=== PATIENT | female | born 1985 | race African-American/Black ===

== ENCOUNTER → 2016-06-13 | Outpatient (CLI) | payer OTHER ==
[~2016-06-13] MED LIST: AMOX400S2; CIPR500T19; COLA100C2; IBUP100S; IBUP800T; PERC5TAB8; Senna
== END ==
LOC: M OUTALCOH 08:58
PROVIDERS: ATTEND Psychiatry & Neurology Psychiatry
DX: Z13.9 Encounter for screening, unspecified (principal); F12.20 Cannabis dependence, uncomplicated; F11.20 Opioid dependence, uncomplicated

== ENCOUNTER → 2016-07-12 | Outpatient (RCR) | payer OTHER | LOC: M OUTALCOH 06-21 14:17 | PROVIDERS: ATTEND Psychiatry & Neurology Psychiatry | DX: F11.20 Opioid dependence, uncomplicated (principal); F12.20 Cannabis dependence, uncomplicated; Z72.0 Tobacco use ==

== ENCOUNTER → 2016-07-22 | Outpatient (REF) | payer OTHER | LOC: M SFHCPLAZ 15:50 | PROVIDERS: ATTEND Family Medicine | DX: Z11.3 Encounter for screening for infections with a predominantly sexual mode of transmission (principal) ==

== ENCOUNTER → 2016-07-28 | Outpatient (REF) | payer OTHER | LOC: M SFHCPLAZ 15:31 | PROVIDERS: ATTEND Family Medicine | DX: Z12.4 Encounter for screening for malignant neoplasm of cervix (principal); A59.09 Other urogenital trichomoniasis ==

== ENCOUNTER → 2016-08-12 | Outpatient (RCR) | payer OTHER | LOC: M OUTALCOH 07-15 10:10 | PROVIDERS: ATTEND Psychiatry & Neurology Psychiatry | DX: Z13.9 Encounter for screening, unspecified (principal); F11.20 Opioid dependence, uncomplicated; F12.20 Cannabis dependence, uncomplicated; Z72.0 Tobacco use ==

== ENCOUNTER 2016-09-07 13:00 | Outpatient (RCR) | payer OTHER | END 2016-09-11 | LOC: M OUTALCOH 13:00 | PROVIDERS: ATTEND Psychiatry & Neurology Psychiatry | DX: Z13.9 Encounter for screening, unspecified (principal); F11.20 Opioid dependence, uncomplicated; F12.20 Cannabis dependence, uncomplicated; Z72.0 Tobacco use ==

== ENCOUNTER 2016-10-06 15:00 | Outpatient (RCR) | payer OTHER | END 2016-10-12 | LOC: M OUTALCOH 15:00 | PROVIDERS: ATTEND Psychiatry & Neurology Psychiatry | DX: Z13.9 Encounter for screening, unspecified (principal); F11.20 Opioid dependence, uncomplicated; F12.20 Cannabis dependence, uncomplicated; Z72.0 Tobacco use ==

== ENCOUNTER 2016-11-07 15:00 | Outpatient (RCR) | payer OTHER | END 2016-11-11 | LOC: M OUTALCOH 15:00 | PROVIDERS: ATTEND Psychiatry & Neurology Psychiatry | DX: Z13.9 Encounter for screening, unspecified (principal); F11.20 Opioid dependence, uncomplicated; F12.20 Cannabis dependence, uncomplicated; Z72.0 Tobacco use ==

== ENCOUNTER 2016-11-28 16:00 | Outpatient (RCR) | payer OTHER | END 2016-12-12 | LOC: M OUTALCOH 16:00 | PROVIDERS: ATTEND Psychiatry & Neurology Psychiatry | DX: F11.20 Opioid dependence, uncomplicated (principal); F12.20 Cannabis dependence, uncomplicated; Z72.0 Tobacco use ==

== ENCOUNTER 2016-12-21 12:10 | Outpatient (RCR) | payer OTHER | END 2017-01-12 | LOC: M OUTALCOH 12:10 | PROVIDERS: ATTEND Psychiatry & Neurology Psychiatry | DX: Z13.9 Encounter for screening, unspecified (principal); F11.20 Opioid dependence, uncomplicated; F12.20 Cannabis dependence, uncomplicated; Z72.0 Tobacco use ==

== ENCOUNTER 2017-05-31 15:07 | Emergency (ER) | payer OTHER ==
[2017-05-31 17:13] LABS: CONTROL LINE UCG INT CTR LINE PRESENT; URINE PREG TEST NEGATIVE (NEGATIVE)
[2017-05-31 17:24] LABS: KETONE, URINE AUTO RFX NEGATIVE (NEGATIVE); LEUKOCYTE ESTERASE UR AUTO RFX NEGATIVE (NEGATIVE); MUCUS, URINE RFX SMALL (NEGATIVE); NITRITE, URINE AUTO RFX NEGATIVE (NEGATIVE); RBC, URINE AUTO RFX 1 /HPF (0-3); SQUAM EPITHELIAL CELL UR AURFX 3 /HPF (0-6); WBC, URINE AUTO RFX 0 /HPF (0-3)
[2017-05-31] MEDS: PERCOCET 5MG/325MG TAB PO (17:24)
[2017-05-31] MEDS: ONDANSETRON 4 MG TAB (S0181) PO (17:25)
== END 2017-05-31 18:14 | disposition home or self-care (01) ==
LOC: M ED 15:07
DX: S16.1XXA Strain of muscle, fascia and tendon at neck level, initial encounter (principal); S39.012A Strain of muscle, fascia and tendon of lower back, initial encounter; W00.0XXA Fall on same level due to ice and snow, initial encounter; Y92.89 Other specified places as the place of occurrence of the external cause; F41.9 Anxiety disorder, unspecified; Z88.0 Allergy status to penicillin
CPT/HCPCS: 72072

== ENCOUNTER → 2019-07-17 | Outpatient (REF) | payer OTHER ==
[~2019-07-17] MED LIST changes: +HYDR-3715 PO; +IBUP-1022 PO; +SERT50TA29 PO; +TRAZ-257 PO
[2019-07-17 13:43] LABS: CHLAMYDIA DNA AMPLIFICATION NEGATIVE (NEGATIVE); GC DNA AMPLIFICATION POSITIVE (NEGATIVE)
== END ==
LOC: M SFHCPLAZ 10:17 → M SFHCWAGY 10:17
PROVIDERS: ATTEND Family Medicine
DX: Z12.4 Encounter for screening for malignant neoplasm of cervix (principal); Z11.3 Encounter for screening for infections with a predominantly sexual mode of transmission

== ENCOUNTER → 2019-09-09 | Outpatient (REF) | payer OTHER | LOC: M SFHCWAGY 16:47 | PROVIDERS: ATTEND Nurse Practitioner Women's Health | DX: R87.810 Cervical high risk human papillomavirus (HPV) DNA test positive (principal) ==

== ENCOUNTER 2020-04-12 18:40 | Emergency (ER) | payer OTHER ==
[~2020-04-12] VITALS: Ht 160 cm; Wt 78.4 kg
[2020-04-12] MEDS ORDERED: ACET650T15 PO (18:51)
[2020-04-12] MEDS ORDERED: ZOLP5TAB PO (18:51)
[2020-04-12 19:32] LABS: BASO # 0.1 10^3/uL (0.0-0.2); BASO % 0.6 % (0.0-1.0); EOS # 0.1 10^3/uL (0.0-0.5); EOS % 0.5 % (0.0-3.0); HEMATOCRIT 38.6 % (36.0-47.0); HEMOGLOBIN 12.1 g/dl (12.0-15.5); LYMPH # 2.2 10^3/uL (1.5-5.0); LYMPH % 21.6 % (24.0-44.0); MEAN CORPUSCULAR HEMOGLOBIN 24.9 pg (27.0-33.0); MEAN CORPUSCULAR HGB CONC 31.3 g/dl (32.0-36.5); MEAN CORPUSCULAR VOLUME 79.6 fl (80.0-96.0); MONO # 0.5 10^3/uL (0.0-0.8); MONO % 4.9 % (0.0-5.0); NEUTROPHILS # 7.4 10^3/uL (1.5-8.5); NEUTROPHILS % 72.1 % (36.0-66.0); PLATELET COUNT, AUTOMATED 307 10^3/uL (150-450); RED BLOOD COUNT 4.85 10^6/uL (4.00-5.40); WHITE BLOOD COUNT 10.2 10^3/uL (4.0-10.0)
[2020-04-12 19:52] LABS: BLOOD UREA NITROGEN 5 MG/DL (7-18); C REACTIVE PROTEIN QUANTITATIV 6.94 MG/DL (0.00-0.30); CALCIUM LEVEL 8.6 MG/DL (8.5-10.1); CARBON DIOXIDE LEVEL 27 MEQ/L (21-32); CHLORIDE LEVEL 103 MEQ/L (98-107); CREATININE FOR GFR 0.68 MG/DL (0.55-1.30); GLOMERULAR FILTRATION RATE > 60.0 (>60); GLUCOSE, FASTING 105 MG/DL (70-100); POTASSIUM SERUM 3.3 MEQ/L (3.5-5.1); SODIUM LEVEL 135 MEQ/L (136-145)
[2020-04-12 19:55] LABS: ERYTHROCYTE SEDIMENTATION RATE 42 mm/hr (0-20)
[2020-04-12] MEDS ORDERED: KETOROLAC 30 MG/ML 1ML VIAL IV ONE (20:30)
[2020-04-12] MEDS ORDERED: CLINDAMYCIN 900 MG in IV 1 EA IV ONE (20:30)
[2020-04-12] MEDS ORDERED: CLEO300C2 PO (21:58)
[2020-04-12 22:22] VITALS: BP 168/90
== END 2020-04-12 22:24 | disposition home or self-care (01) ==
LOC: M ED 18:40
DX: L03.114 Cellulitis of left upper limb (principal); F17.200 Nicotine dependence, unspecified, uncomplicated; Z97.5 Presence of (intrauterine) contraceptive device; Z79.899 Other long term (current) drug therapy; Z88.0 Allergy status to penicillin
CPT/HCPCS: 36415; 80048; 85025; 85652; 86140; 87040; 96365; 96375; 99284; J1885

== ENCOUNTER 2020-04-14 18:06 | Emergency (ER) | payer OTHER ==
[~2020-04-14] VITALS: Ht 160 cm; Wt 78.5 kg
[~2020-04-14 18:06] MED LIST changes: +ACET650T15 PO; +CLEO300C2 PO; +ZOLP5TAB PO
[2020-04-14 18:07] VITALS: BP 129/65
[2020-04-14] MEDS ORDERED: LIDOCAINE 1% MDV 20ML VIAL As Ordered ONE (18:33)
[2020-04-14] MEDS ORDERED: LIDOCAINE 1% MDV 20ML VIAL SC ONE (18:45)
[2020-04-14] MEDS ORDERED: CLINDAMYCIN 150MG CAPSULE PO ONE (19:15)
== END 2020-04-14 19:37 | disposition home or self-care (01) ==
LOC: M ED 19:29
DX: L02.414 Cutaneous abscess of left upper limb (principal); L03.114 Cellulitis of left upper limb; F17.200 Nicotine dependence, unspecified, uncomplicated; Z79.3 Long term (current) use of hormonal contraceptives; Z79.899 Other long term (current) drug therapy; Z88.0 Allergy status to penicillin

== ENCOUNTER 2020-04-16 10:41 | Inpatient (IN) | payer OTHER ==
[~2020-04-16] VITALS: Ht 160 cm; Wt 78.4 kg
[2020-04-16] MEDS ORDERED: VANCOMYCIN HCL 1,500 MG in D5W 250 ML IV ONE (11:15)
[2020-04-16] MEDS ORDERED: VANCOMYCIN HCL 750 MG, VIAL MATE ADAPTER 1 EACH in D5W 250 ML IV ONE ×2 (11:30→12:30)
[2020-04-16] MEDS ORDERED: MIRE1IUD IU (11:36)
[2020-04-16] MEDS ORDERED: CLEO300C2 PO (11:36)
[2020-04-16 12:24] LABS: BASO % 0.4 % (0.0-1.0); EOS % 0.6 % (0.0-3.0); HEMATOCRIT 35.2 % (36.0-47.0); HEMOGLOBIN 11.1 g/dl (12.0-15.5); LYMPH # 2.3 10^3/uL (1.5-5.0); LYMPH % 32.2 % (24.0-44.0); MEAN CORPUSCULAR HEMOGLOBIN 25.4 pg (27.0-33.0); MEAN CORPUSCULAR HGB CONC 31.5 g/dl (32.0-36.5); MEAN CORPUSCULAR VOLUME 80.5 fl (80.0-96.0); MONO # 0.6 10^3/uL (0.0-0.8); MONO % 8.1 % (0.0-5.0); NEUTROPHILS # 4.1 10^3/uL (1.5-8.5); NEUTROPHILS % 58.4 % (36.0-66.0); RED BLOOD COUNT 4.37 10^6/uL (4.00-5.40); WHITE BLOOD COUNT 7.1 10^3/uL (4.0-10.0)
--- NOTE | 2020-04-16 12:31 | REP ---
INDICATION: L forearm induration/edema/warmth, previous I. Recent incision and drainage. COMPARISON: None. TECHNIQUE: Two-dimensional soft tissue scanning. FINDINGS: Scanning in the area of the left forearm induration and inflammation with active drainage the demonstrates ill-defined subcutaneous fat edema consistent with cellulitis or inflammation. A tract through the overlying skin is seen. No localized fluid collection is appreciated to suggest abscess. IMPRESSION: Diffuse subcutaneous fat inflammation and edema. No abscess seen. <Electronically signed by Ankit Salinas > 04/16/20 1245
[2020-04-16 12:39] LABS: PLATELET COUNT, AUTOMATED 312 10^3/uL (150-450)
[2020-04-16 12:50] LABS: BLOOD UREA NITROGEN 4 MG/DL (7-18); CALCIUM LEVEL 9.1 MG/DL (8.5-10.1); CARBON DIOXIDE LEVEL 27 MEQ/L (21-32); CHLORIDE LEVEL 105 MEQ/L (98-107); CREATININE FOR GFR 0.65 MG/DL (0.55-1.30); GLOMERULAR FILTRATION RATE > 60.0 (>60); GLUCOSE, FASTING 111 MG/DL (70-100); POTASSIUM SERUM 3.2 MEQ/L (3.5-5.1); SODIUM LEVEL 138 MEQ/L (136-145)
[2020-04-16 12:51] LABS: HCG, SERUM QUALITATIVE NEGATIVE (NEGATIVE)
[2020-04-16] MEDS ORDERED: POTASSIUM CHLORIDE 10 MEQ SR TABLET PO ONE (13:30)
[2020-04-16] MEDS: NS 1,000 ML IV SCH ×2 (13:39→20:44)
--- NOTE | 2020-04-16 13:57 | HPEPDOC ---
General Date of Admission 06/17/19 Date of Service: Apr 16, 2020 Chief Complaint The patient is a 34-year-old female admitted with a reason for visit of Recheck. Source: Patient Exam Limitations: No limitations Timing/Duration: Day(s) Severity: Moderate History of Present Illness Patient is 34 years old female with past medical history of insomnia, depression, polysubstance abuse presented to the hospital with left forearm swelling and purulent discharge. Patient stated around 3 days ago she removed ingrown hair from left forearm and after that she developed swelling and redness of the area. Patient was prescribed clindamycin and she took for 3 days without positive effect. On April 14 she had incision and drainage in ER. However today she continues to have increased swelling with purulent discharge. In ER ultrasound was done and showed Diffuse subcutaneous fat inflammation and edema. No abscess seen. Patient does not have leukocytosis. Vital signs significant for tachycardia Home Medications Scheduled Clindamycin Hcl (Cleocin HCl) 300 Mg Capsule, 300 MG PO TID, (Reported) FILLED 04/13/20 FOR 10 DAYS Levonorgestrel (Mirena) 1 Each Iud, 20 MCG IU ASDIRECTED, (Reported) 2016ISH Zolpidem Tartrate (Zolpidem Tartrate) 5 Mg Tablet, 5 MG PO QHS, (Reported) Allergies Coded Allergies: Penicillins (Verified Allergy, Unknown, 04/12/20) Past Medical History Medical History Insomnia, depression, polysubstance abuse Family History I personally reviewed family history and found not pertinent Social History * Smoker: current smoker Alcohol: Denies Drugs: heroin, other (patient stated that she didn't use drugs for more than 1 year) A-FIB/CHADSVASC A-FIB History Current/History of A-Fib/PAF?: No Current PO Anticoag Therapy: No Review of Systems Constitutional: Denies: Chills Eyes: Denies: Pain ENT: Denies: Head Aches Skin: Reports: Breakdown (left forearm carbuncle); Denies: Rash Pulmonary: Denies: Dyspnea Cardiovascular: Denies: Chest Pain, Palpitations Gastrointestinal: Denies: Nausea Genitourinary: Denies: Dysuria Hematologic: Denies: Bruising Endocrine: Denies: Polydipsia Musculoskeletal: Reports: Arm Pain; Denies: Neck Pain Neurological: Denies: Weakness Psych: Reports: Mood Normal Physical Examination General Exam: Positive: Alert, Cooperative Eye Exam: Positive: PERRLA, Conjunctiva & lids normal ENT Exam: Positive: Atraumatic Neck Exam: Positive: Supple; Negative: JVD Chest Exam: Positive: Clear to auscultation Heart Exam: Positive: Rate Normal Telemetry: Positive: No significant arrhythmia Abdomen Exam: Positive: Normal bowel sounds Extremity Exam: Positive: Swelling (area of inflammation with redness of left forearm 5-6 cm, purulent discharge seen) Skin Exam: Positive: Other skin issue (see above) Neuro Exam: Positive: Normal Gait, Strength at 5/5 X4 ext Psych Exam: Positive: Mental status NL Vital Signs Vital Signs Date Time Temp Pulse Resp B/P (MAP) Pulse Ox O2 Delivery O2 Flow Rate FiO2 04/16/20 10:42 97.8 120 16 140/98 (112) 100 Laboratory Data Labs 24H Laboratory Tests 2 04/16/20 12:10: Immature Granulocyte % (Auto) 0.3, Neutrophils (%) (Auto) 58.4, Lymphocytes (%) (Auto) 32.2, Monocytes (%) (Auto) 8.1H, Eosinophils (%) (Auto) 0.6, Basophils (%) (Auto) 0.4, Neutrophils # (Auto) 4.1, Lymphocytes # (Auto) 2.3, Monocytes # (Auto) 0.6, Eosinophils # (Auto) 0.0, Basophils # (Auto) 0.0, Nucleated Red Blood Cells % (auto) 0.0, Anion Gap 6L, Glomerular Filtration Rate > 60.0, Lactic Acid Level 1.1, Calcium Level 9.1, Human Chorionic Gonadotropin, Qual NEGATIVE CBC/BMP Laboratory Tests 04/16/20 12:10 Microbiology Microbiology 04/16/20 Blood Culture, Received Pending 04/16/20 Blood Culture, Received Pending Assessment/Plan Patient is 34 years old female with past medical history of insomnia, depression, polysubstance abuse presented to the hospital with left forearm swelling and purulent discharge. Patient stated around 3 days ago she removed ingrown hair from left forearm and after that she developed swelling and redness of the area. Patient was prescribed clindamycin and she took for 3 days without positive effect. On April 14 she had incision and drainage in ER. However today she continues to have increased swelling with purulent discharge. In ER ultrasound was done and showed Diffuse subcutaneous fat inflammation and edema. No abscess seen. Patient does not have leukocytosis. Vital signs significant for tachycardia Problems (1) Cellulitis of left forearm Status: Acute Problem Text: Patient developed cellulitis with carbuncle Patient failed by mouth antibiotic therapy with clindamycin Blood culture Vancomycin IV Ultrasound negative for abscess If patient swelling not improve for next 24 hours I will ask the surgical team to evaluate it Plan / VTE VTE Prophylaxis Ordered?: Yes KLEVER BERGERON DO Apr 16, 2020 13:57
[2020-04-16 18:19] VITALS: BP 108/66
[2020-04-16] MEDS: zolPIDEM TARTRATE 5 MG TAB PO SCH (20:43)
[2020-04-16] MEDS: VANCOMYCIN HCL 1,000 MG, VIAL MATE ADAPTER 1 EACH in D5W 250 ML IV SCH (20:44)
[2020-04-16 22:00] VITALS: BP 132/85
[2020-04-17] MEDS: VANCOMYCIN HCL 1,000 MG, VIAL MATE ADAPTER 1 EACH in D5W 250 ML IV SCH ×3 (05:36→20:18)
[2020-04-17 06:00] VITALS: BP 129/83
[2020-04-17 07:24] LABS: HEMATOCRIT 33.6 % (36.0-47.0); HEMOGLOBIN 10.3 g/dl (12.0-15.5); MEAN CORPUSCULAR HEMOGLOBIN 24.5 pg (27.0-33.0); MEAN CORPUSCULAR HGB CONC 30.7 g/dl (32.0-36.5); PLATELET COUNT, AUTOMATED 326 10^3/uL (150-450); WHITE BLOOD COUNT 5.9 10^3/uL (4.0-10.0)
[2020-04-17 07:54] LABS: BLOOD UREA NITROGEN 3 MG/DL (7-18); CARBON DIOXIDE LEVEL 29 MEQ/L (21-32); CHLORIDE LEVEL 106 MEQ/L (98-107); CREATININE FOR GFR 0.53 MG/DL (0.55-1.30); GLOMERULAR FILTRATION RATE > 60.0 (>60); GLUCOSE, FASTING 116 MG/DL (70-100); MAGNESIUM LEVEL 2.2 MG/DL (1.8-2.4); POTASSIUM SERUM 3.6 MEQ/L (3.5-5.1); SODIUM LEVEL 139 MEQ/L (136-145)
[2020-04-17] MEDS ORDERED: NICOTINE 21MG/24HR 1 EA TRANSDERMAL TD PRN (08:30)
[2020-04-17] MEDS: ENOXAPARIN 40MG/0.4ML SYRINGE (J1650 PER 10MG) SC SCH (09:00)
[2020-04-17] MEDS: NS 1,000 ML IV SCH ×2 (09:19→20:19)
[2020-04-17 14:00] VITALS: BP 129/84
--- NOTE | 2020-04-17 15:29 | IPNPDOC ---
Text Note Date of Service The patient was seen on 04/17/20. NOTE Subjective: Patient stated that she has suicidal ideation. She doesn't have any plan to commit suicide. Patient did not take any medications for depression Objective: GENERAL APPEARANCE: NAD HEENT: no scleral icterus, no JVD, EOMI CARDIOVASCULAR: S1S2 LUNGS: CTA ABDOMEN: soft & not tender w palpitation MUSCULOSKELETAL: area of inflammation with redness of left forearm 5-6 cm, with no purulent discharge INTEGUMENT: no generalized pallor NEUROLOGICAL: cranial nerve function from 2-12 intact intact, follows commands, speech not dysarthric Assessment/Plan Patient is 34 years old female with past medical history of insomnia, depression, polysubstance abuse presented to the hospital with left forearm swelling and purulent discharge. Patient stated around 3 days ago she removed ingrown hair from left forearm and after that she developed swelling and redness of the area. Patient was prescribed clindamycin and she took for 3 days without positive effect. On April 14 she had incision and drainage in ER. However today she continues to have increased swelling with purulent discharge. In ER ultrasound was done and showed Diffuse subcutaneous fat inflammation and edema. No abscess seen. Patient does not have leukocytosis. Vital signs significant for tachycardia Problems (1) Cellulitis of left forearm Improved Patient developed cellulitis with carbuncle Patient failed by mouth antibiotic therapy with clindamycin Blood culture negative c /w Vancomycin IV Ultrasound negative for abscess Depression with suicidal ideation Appreciate/agree with psych consult Sitter Richard HERNÁNDEZ, I+O VSRichard, I+O Laboratory Tests 04/17/20 06:59 Vital Signs Date Time Temp Pulse Resp B/P (MAP) Pulse Ox O2 Delivery O2 Flow Rate FiO2 04/17/20 06:00 97.9 94 18 129/83 (98) 96 Room Air I&O- Last 24 Hours up to 6 AM 04/17/20 06:00 Intake Total 3975 ml Output Total 0 ml Balance 3975 ml KLEVER BERGERON DO Apr 17, 2020 15:29
[2020-04-17] MEDS: ACETAMINOPHEN TAB 650MG DOSE (2X325MG) PO PRN (17:50)
[2020-04-17] MEDS: zolPIDEM TARTRATE 5 MG TAB PO SCH (20:18)
[2020-04-17 21:00] VITALS: BP 119/62
[2020-04-18] MEDS: VANCOMYCIN HCL 1,000 MG, VIAL MATE ADAPTER 1 EACH in D5W 250 ML IV SCH ×3 (04:14→21:28)
[2020-04-18] MEDS: NS 1,000 ML IV SCH (05:32)
[2020-04-18 06:00] VITALS: BP 128/86
[2020-04-18] MEDS: ENOXAPARIN 40MG/0.4ML SYRINGE (J1650 PER 10MG) SC SCH (09:00)
--- NOTE | 2020-04-18 13:08 | IPNPDOC ---
Text Note Date of Service The patient was seen on 04/18/20. NOTE Subjective: Patient cries in the morning stating that she has severe flank pain bilaterally and most likely she has kidney infection. Objective: GENERAL APPEARANCE: NAD HEENT: no scleral icterus, no JVD, EOMI CARDIOVASCULAR: S1S2 LUNGS: CTA ABDOMEN: soft & not tender w palpitation MUSCULOSKELETAL: area of inflammation with redness of left forearm 5-6 cm, with no purulent discharge INTEGUMENT: no generalized pallor NEUROLOGICAL: cranial nerve function from 2-12 intact intact, follows commands, speech not dysarthric Assessment/Plan Patient is 34 years old female with past medical history of insomnia, depression, polysubstance abuse presented to the hospital with left forearm swelling and purulent discharge. Patient stated around 3 days ago she removed ingrown hair from left forearm and after that she developed swelling and redness of the area. Patient was prescribed clindamycin and she took for 3 days without positive effect. On April 14 she had incision and drainage in ER. However today she continues to have increased swelling with purulent discharge. In ER ultrasound was done and showed Diffuse subcutaneous fat inflammation and edema. No abscess seen. Patient does not have leukocytosis. Vital signs significant for tachycardia Problems (1) Cellulitis of left forearm Improved Patient developed cellulitis with carbuncle Patient failed by mouth antibiotic therapy with clindamycin Blood culture negative c /w Vancomycin IV Ultrasound negative for abscess Depression with suicidal ideation Appreciate/agree with psych consult Sitter Flank pain We'll check urine analysis Unlikely patient has acute pyelonephritis Blood culture negative, patient afebrile, no leukocytosis VS,Bene, I+O VS, Fishbone, I+O Vital Signs Date Time Temp Pulse Resp B/P (MAP) Pulse Ox O2 Delivery O2 Flow Rate FiO2 04/18/20 06:00 98.3 82 20 128/86 (100) 100 Room Air I&O- Last 24 Hours up to 6 AM 04/18/20 06:00 Intake Total 4710 ml Output Total 0 ml Balance 4710 ml KLEVER BERGERON DO Apr 18, 2020 13:07
[2020-04-18] MEDS: ACETAMINOPHEN TAB 650MG DOSE (2X325MG) PO PRN ×2 (13:15→21:28)
--- NOTE | 2020-04-18 13:34 | MHCRPDOC ---
[facility] Consultation Consultation DATE OF CONSULTATION: 04/18/20 CONSULTATION REQUESTED BY: Dr. Neptali Ny REASON FOR CONSULTATION: Depression and SI RELEVANT HISTORY: As per previous records: "Patient is 34 years old female with past medical history of insomnia, depression, polysubstance abuse presented to the hospital with left forearm swelling and purulent discharge. Patient stated around 3 days ago she removed ingrown hair from left forearm and after that she developed swelling and redness of the area. Patient was prescribed clindamycin and she took for 3 days without positive effect. On April 14 she had incision and drainage in ER. However today she continues to have increased swelling with purulent discharge. In ER ultrasound was done and showed Diffuse subcutaneous fat inflammation and edema. No abscess seen. Patient does not have leukocytosis. Vital signs significant for tachycardia" PAST PSYCHIATRIC HISTORY: H/O depression and polysubstance use, she says she was treated with Zoloft and it didn't work. Reports being hospitalized at [facility] and she felt it was not beneficial for her, remained 2 weeks in there PAST MEDICAL HISTORY: H/O insomnia, depression and polysubstance abuse FAMILY HISTORY: Mother: alive, has a h/o depression, has used antidepressants Father: she didn't respond my questions when I asked about him Siblings: patient is uncooperative, she didn't respond my questions Children: she says she has a 10 year old daughter PERSONAL AND SOCIAL HISTORY: The patient was born and raised in [place]. Resides in: [place] Marital Status: S Single Children: She has a 10 year old daughter Employment: She is very distraught, is tearful, crying, not answering some of my questions SUBSTANCE ABUSE HISTORY: Smoking: smokes cigarettes, unknown amount, patint became very irritable when I asked her how many cigarettes she smoked ETOH: Denies alcohol abuse Illicit Drugs: has used heroin in the past, has used marijuana, she says she hasn't used drugs in the recent past LEGAL HISTORY: . MENTAL STATUS EXAMINATION: Patient is a 34year old female, who is alert, tearful, uncooperative, agitated, dressed in hospital gown, refusing to have her blood drawn until finally she did allow the optical laboratory manager to do it. . Speech is Fast, loud, normal tone. needs prompting at times Language skills are intact. Thought processes including: linear and coherent. Thought content: negative for SI/HI. She is guarded, seems paranoid, even when she denies feeling paranoid Abstract reasoning, and computation: Could not assss, patient was very agitated and uncooperative at times Description of associations: intact. Description of abnormal or psychotic thoughts: Denies TAV hallucinations, denies thought delusions but she appears paranoid, denies SI/HI. she says she felt a if she was going to jump off the window when she came to the Hospital but adamantly denies feeling suicidal at this time. Judgment: Poor Insight: Poor. Orientation to x 3. Recent and remote memory: seems to be intact. Attention span and concentration: fair. Language: adequate. Fund of knowledge: couldn't assess at this time, patient was not cooperative with some of the questions. Mood: Irritable/sad. Affect: Labile, angry, sad, congruent with mood. DIAGNOSIS: 1. R/O major Depressive Disorder, recurrent, moderate---- patient states she has felt depressed all her life. 2. R/O Personality disorder, cluster B PLAN: 1. The patient is crying but there are no tears, she is uncooperative with staff, reluctant to have her blood drawn, easily agitated, angry towards the optical laboratory manager. Later when I spoke with her, she answered some of the questions only. she is labile and easily agitated. Her presentation seems to be congruent with a personality disorder, like borderline personality disorder. She says she used drugs in the past because they made her feel better. She reports being depressed all her life. I asked her if she would agree to start taking antidepressants and has agreed with it. she says she took Zoloft in the past but there's a question about compliance and adherence to treatment. She could benefit from an SSRI like Lexapro 10 mgs PO daily and a low dose of Zyprexa, 5 mgs PO daily which will help her stabilize her mood. Vital Signs Vital Signs Date Time Temp Pulse Resp B/P (MAP) Pulse Ox O2 Delivery O2 Flow Rate FiO2 04/18/20 06:00 98.3 82 20 128/86 (100) 100 Room Air Laboratory Data 24H Labs Laboratory Tests 2 04/18/20 12:47: Home Medications Current Medications Current Medications Medications (Trade) Dose Ordered Sig/Nidhi Route PRN Reason Start Time Stop Time Status Last Admin Dose Admin Acetaminophen (Tylenol Tab) 650 mg Q4H PRN PO PAIN OR FEVER 04/16/20 13:45 04/17/20 17:50 Enoxaparin Sodium (Lovenox) 40 mg DAILY SC 04/17/20 09:00 Home Med (Med Rec Complete!) ASDIRECTED XX 04/16/20 11:45 04/16/20 11:42 DC Nicotine (Nicoderm Cq 21mg) 1 patch DAILYPRN PRN TD NICOTINE WITHDRAWAL 04/17/20 08:30 04/17/20 09:18 Sodium Chloride 1,000 ml @ 100 mls/hr Q10H IV 04/16/20 13:39 04/18/20 05:32 Vancomycin HCl 1000 mg/IV Miscellaneous Supplies 1 each/ Dextrose 270 ml @ 270 mls/hr Q8H IV 04/16/20 21:00 04/18/20 04:14 Zolpidem Tartrate (Ambien) 5 mg QHS PO 04/16/20 21:00 04/17/20 20:18 Scheduled Clindamycin Hcl (Cleocin HCl) 300 Mg Capsule, 300 MG PO TID, (Reported) FILLED 04/13/20 FOR 10 DAYS Levonorgestrel (Mirena) 1 Each Iud, 20 MCG IU ASDIRECTED, (Reported) Zolpidem Tartrate (Zolpidem Tartrate) 5 Mg Tablet, 5 MG PO QHS, (Reported) Allergies Coded Allergies: Penicillins (Verified Allergy, Unknown, 04/12/20) ALANA REID MD Apr 18, 2020 13:14
[2020-04-18 13:43] LABS: APPEARANCE, URINE HAZY (CLEAR); BACTERIA, URINE AUTO NEGATIVE (NEGATIVE); BILIRUBIN, URINE AUTO NEGATIVE (NEGATIVE); BLOOD, URINE BLOOD 2+ (NEGATIVE); COLOR, URINE YELLOW (YELLOW); GLUCOSE, URINE (UA) AUTO NEGATIVE (NEGATIVE); KETONE, URINE AUTO NEGATIVE (NEGATIVE); LEUKOCYTE ESTERASE, URINE AUTO NEGATIVE (NEGATIVE); NITRITE, URINE AUTO NEGATIVE (NEGATIVE); PROTEIN, URINE AUTO NEGATIVE (NEGATIVE); RBC, URINE AUTO 1 /HPF (0-3); SPECIFIC GRAVITY URINE AUTO 1.005 (1.002-1.035); SQUAMOUS EPITHELIAL CELL UR AU 4 /HPF (0-6); UROBILINOGEN, URINE AUTO 0.2 mg/dL (0.0-2.0); WBC, URINE AUTO 2 /HPF (0-3)
[2020-04-18 14:00] VITALS: BP 119/80
[2020-04-18] MEDS ORDERED: ESCITALOPRAM OXALATE 10 MG TAB (LEXAPRO) PO ONE (15:00)
[2020-04-18] MEDS ORDERED: OLANZapine 5 MG TAB PO ONE (15:00)
[2020-04-18] MEDS: zolPIDEM TARTRATE 5 MG TAB PO SCH (21:27)
[2020-04-18 22:00] VITALS: BP 143/86
[2020-04-19] MEDS: ACETAMINOPHEN TAB 650MG DOSE (2X325MG) PO PRN ×4 (03:10→17:49)
[2020-04-19] MEDS: VANCOMYCIN HCL 1,000 MG, VIAL MATE ADAPTER 1 EACH in D5W 250 ML IV SCH ×2 (05:21→13:22)
[2020-04-19 06:00] VITALS: BP 145/85
[2020-04-19] MEDS ORDERED: OLANZapine 5 MG TAB PO SCH (09:00)
[2020-04-19] MEDS: ENOXAPARIN 40MG/0.4ML SYRINGE (J1650 PER 10MG) SC SCH (09:00)
[2020-04-19] MEDS ORDERED: ESCITALOPRAM OXALATE 10 MG TAB (LEXAPRO) PO SCH (09:00)
--- NOTE | 2020-04-19 12:29 | IPNPDOC ---
Text Note Date of Service The patient was seen on 04/19/20. NOTE Subjective: No any acute events overnight. Patient denies fever, chills, nausea, vomiting, diarrhea or dysuria Objective: GENERAL APPEARANCE: NAD HEENT: no scleral icterus, no JVD, EOMI CARDIOVASCULAR: S1S2 LUNGS: CTA ABDOMEN: soft & not tender w palpitation MUSCULOSKELETAL: area of mild redness of left forearm 2x3cm, with no purulent discharge INTEGUMENT: no generalized pallor NEUROLOGICAL: cranial nerve function from 2-12 intact intact, follows commands, speech not dysarthric Assessment/Plan Patient is 34 years old female with past medical history of insomnia, depression, polysubstance abuse presented to the hospital with left forearm swelling and purulent discharge. Patient stated around 3 days ago she removed ingrown hair from left forearm and after that she developed swelling and redness of the area. Patient was prescribed clindamycin and she took for 3 days without positive effect. On April 14 she had incision and drainage in ER. However today she continues to have increased swelling with purulent discharge. In ER ultrasound was done and showed Diffuse subcutaneous fat inflammation and edema. No abscess seen. Patient does not have leukocytosis. Vital signs significant for tachycardia Problems (1) Cellulitis of left forearm Markedly Improved today Patient developed cellulitis with carbuncle Patient failed by mouth antibiotic therapy with clindamycin One set of blood culture positive for gram-negative rods. Most likely contamination. Subsequent blood culture negative c /w Vancomycin IV Ultrasound negative for abscess Depression with suicidal ideation Psychiatrist Dr. Lua recommended to start treatment with Lexapro and Zyprexa Most likely patient will need transferred to [facility] Sitter Flank pain Resolved UA unremarkable Unlikely patient has acute pyelonephritis Blood culture negative, patient afebrile, no leukocytosis VS,Fishbone, I+O VS, Fishbone, I+O Vital Signs Date Time Temp Pulse Resp B/P (MAP) Pulse Ox O2 Delivery O2 Flow Rate FiO2 04/19/20 06:00 97.4 75 18 145/85 (105) 99 Room Air I&O- Last 24 Hours up to 6 AM 04/19/20 06:00 Intake Total 2240 ml Output Total 700 ml Balance 1540 ml KLEVER BERGERON DO Apr 19, 2020 12:29
[2020-04-19 14:00] VITALS: BP 140/84
[2020-04-19 14:04] LABS: BASO % 0.8 % (0.0-1.0); EOS % 0.2 % (0.0-3.0); HEMOGLOBIN 11.7 g/dl (12.0-15.5); LYMPH % 23.2 % (24.0-44.0); MEAN CORPUSCULAR HEMOGLOBIN 24.2 pg (27.0-33.0); MEAN CORPUSCULAR HGB CONC 30.8 g/dl (32.0-36.5); MEAN CORPUSCULAR VOLUME 78.7 fl (80.0-96.0); MONO % 3.8 % (0.0-5.0); NEUTROPHILS % 71.4 % (36.0-66.0); PLATELET COUNT, AUTOMATED 359 10^3/uL (150-450); RED BLOOD COUNT 4.83 10^6/uL (4.00-5.40)
[2020-04-19 14:05] LABS: LYMPH # 1.2 10^3/uL (1.5-5.0); MONO # 0.2 10^3/uL (0.0-0.8); NEUTROPHILS # 3.6 10^3/uL (1.5-8.5)
[2020-04-19 14:31] LABS: BLOOD UREA NITROGEN 3 MG/DL (7-18); CALCIUM LEVEL 8.7 MG/DL (8.5-10.1); CARBON DIOXIDE LEVEL 25 MEQ/L (21-32); CHLORIDE LEVEL 110 MEQ/L (98-107); CREATININE FOR GFR 0.52 MG/DL (0.55-1.30); GLOMERULAR FILTRATION RATE > 60.0 (>60); GLUCOSE, FASTING 112 MG/DL (70-100); POTASSIUM SERUM 3.4 MEQ/L (3.5-5.1); SODIUM LEVEL 141 MEQ/L (136-145)
--- NOTE | 2020-04-19 17:04 | MHIPNPDOC ---
[facility] Progress Note Progress Note DATE OF SERVICE: 04/19/20 HISTORY: As per previous notes: " As per previous records: "Patient is 34 years old female with past medical history of insomnia, depression, polysubstance abuse presented to the hospital with left forearm swelling and purulent discharge. Patient stated around 3 days ago she removed ingrown hair from left forearm and after that she developed swelling and redness of the area. Patient was prescribed clindamycin and she took for 3 days without positive effect. On April 14 she had incision and drainage in ER. However today she continues to have increased swelling with purulent discharge. In ER ultrasound was done and showed Diffuse subcutaneous fat inflammation and edema. No abscess seen. Patie nt does not have leukocytosis. Vital signs significant for tachycardia"" VITAL SIGNS: See below. NEW TEST RESULTS: See below CURRENT MEDICATIONS: See below. MENTAL STATUS EXAMINATION: Patient is a 34-year old female, who is alert, laying in the dark, wearing hospital gown, with a sitter by her side Speech: Is normal t, a little loud, normal rate and rhythm. Language skills are intact Thought processes including: linear and coherent. Thought content: negative for suicidal ideation, the patient adamantly denies being suicidal and she has not had self harm or threatening behaviors while she has been at the Hospital. she says she wants to go home and spend time with her mother, father and child. Abstract reasoning, and computation: fair Description of associations: intact. Description of abnormal or psychotic thoughts: she denies thought delusions, denies TAV hallucinations and she is not responding to internal stimuli. she has anxious thoughts about going home Judgment: fair Insight: limited. Orientation: x 3. Recent and remote memory: intact. Attention span and concentration: not easily distracted Language: adequate. Fund of knowledge: average. Mood: anxious . Affect: congruent with mood. DIAGNOSES: 1. 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 So doesn't fulfill criteria to be admitted to [facility]. she is not suicidal, not homicidal and not psychotic. She is not in danger to herself or others. She is manipulative and she pretends to cry but there are no tears coming out of her eyes. I've spoken with her doctor, David Garcia, and I told her she could go to [facility], she can walk in or she can call to to get treatment. She probably has borderline personaliy disorder, as people with this disorder suffer depression all heir lives but they really improve with therapy and she would accept going for therapy she would see an improvement in her mood and interpersonal relationships. MANAGEMENT PLAN: Dr Lind was notified, he will discharge her home. TIME SPENT: 20 minutes. Vital Signs Vital Signs Date Time Temp Pulse Resp B/P (MAP) Pulse Ox O2 Delivery O2 Flow Rate FiO2 04/19/20 14:00 97.6 88 19 140/84 (102) 98 Room Air Laboratory Data 24H Labs Laboratory Tests 2 04/19/20 13:33: Immature Granulocyte % (Auto) 0.6, Neutrophils (%) (Auto) 71.4H, Lymphocytes (%) (Auto) 23.2L, Monocytes (%) (Auto) 3.8, Eosinophils (%) (Auto) 0.2, Basophils (%) (Auto) 0.8, Neutrophils # (Auto) 3.6, Lymphocytes # (Auto) 1.2L, Monocytes # (Auto) 0.2, Eosinophils # (Auto) 0.0, Basophils # (Auto) 0.0, Nucleated Red Blood Cells % (auto) 0.0, Anion Gap 6L, Glomerular Filtration Rate > 60.0, Calci um Level 8.7 CBC/BMP Laboratory Tests 04/19/20 13:33 Current Medications Current Medications Medications (Trade) Dose Ordered Sig/Nidhi Route PRN Reason Start Time Stop Time Status Last Admin Dose Admin Acetaminophen (Tylenol Tab) 650 mg Q4H PRN PO PAIN OR FEVER 04/16/20 13:45 04/19/20 13:22 Enoxaparin Sodium (Lovenox) 40 mg DAILY SC 04/17/20 09:00 Escitalopram Oxalate (Lexapro) 10 mg DAILY PO 04/19/20 09:00 04/19/20 09:08 Home Med (Med Rec Complete!) ASDIRECTED XX 04/16/20 11:45 04/16/20 11:42 DC Nicotine (Nicoderm Cq 21mg) 1 patch DAILYPRN PRN TD NICOTINE WITHDRAWAL 04/17/20 08:30 04/17/20 09:18 Olanzapine (ZyPREXA) 5 mg DAILY PO 04/19/20 09:00 04/19/20 09:08 Sodium Chloride 1,000 ml @ 100 mls/hr Q10H IV 04/16/20 13:39 04/18/20 13:06 DC 04/18/20 05:32 Vancomycin HCl 1000 mg/IV Miscellaneous Supplies 1 each/ Dextrose 270 ml @ 270 mls/hr Q8H IV 04/16/20 21:00 04/19/20 13:22 Zolpidem Tartrate (Ambien) 5 mg QHS PO 04/16/20 21:00 04/18/20 21:27 Allergies Coded Allergies: Penicillins (Verified Allergy, Unknown, 04/12/20) ALANA REID MD Apr 19, 2020 16:41
[2020-04-19] MEDS ORDERED: ESCI10TA2 PO (17:47)
[2020-04-19] MEDS ORDERED: DOXY-350 PO (17:47)
[2020-04-19] MEDS ORDERED: OLAN5TAB PO (17:47)
--- NOTE | 2020-04-19 17:54 | DS.PDOC ---
Discharge Summary General Date of Admission Apr 16, 2020 at 13:39 Date of Discharge 04/19/20 Discharge Summary PROCEDURES PERFORMED DURING STAY: [None]. ADMITTING DIAGNOSES: Cellulitis of left forearm Depression with suicidal ideation DISCHARGE DIAGNOSES: Cellulitis of left forearm Depression with suicidal ideation COMPLICATIONS/CHIEF COMPLAINT: Cellulitis Lt Forearm. HISTORY OF PRESENT ILLNESS:Patient is 34 years old female with past medical history of insomnia, depression, polysubstance abuse presented to the hospital with left forearm swelling and purulent discharge. Patient stated around 3 days ago she removed ingrown hair from left forearm and after that she developed swelling and redness of the area. Patient was prescribed clindamycin and she took for 3 days without positive effect. On April 14 she had incision and drainage in ER. However today she continues to have increased swelling with purulent discharge. In ER ultrasound was done and showed Diffuse subcutaneous fat inflammation and edema. No abscess seen. Patient does not have leukocytosis. Vital signs significant for tachycardia HOSPITAL COURSE: During hospital stay following issues addressed (1) Cellulitis of left forearm Markedly Improved today Patient developed cellulitis with carbuncle Patient failed by mouth antibiotic therapy with clindamycin One set of blood culture positive for gram-negative rods. Most likely contamination. Subsequent blood culture negative Patient received therapy with Vancomycin IV Ultrasound negative for abscess Depression with suicidal ideation Psychiatrist Dr. Lua recommended to start treatment with Lexapro and Zyprexa She was diagnosed with cluster B personality disorder-R/O Borderline Pers onality As per psychiatrist : "So doesn't fulfill criteria to be admitted to [facility]. she is not suicidal, not homicidal and not psychotic. She is not in danger to herself or others. She is manipulative and she pretends to cry but there are no tears coming out of her eyes" Flank pain Resolved UA unremarkable Unlikely patient has acute pyelonephritis Blood culture negative, patient afebrile, no leukocytosis DISCHARGE MEDICATIONS: Please see below. ALLERGIES: Please see below. PHYSICAL EXAMINATION ON DISCHARGE: VITAL SIGNS: Please see below. GENERAL APPEARANCE: NAD HEENT: no scleral icterus, no JVD, EOMI CARDIOVASCULAR: S1S2 LUNGS: CTA ABDOMEN: soft & not tender w palpitation MUSCULOSKELETAL: area of mild redness of left forearm 2x3cm, with no purulent discharge INTEGUMENT: no generalized pallor NEUROLOGICAL: cranial nerve function from 2-12 intact intact, follows commands, speech not dysarthric LABORATORY DATA: Please see below. PROGNOSIS: Fair ACTIVITY: [As tolerated]. DIET: Regular DISCHARGE PLAN: she could go to [facility], she can walk in or she can call to [phone] to get treatment. DISPOSITION: Home DISCHARGE INSTRUCTIONS: Continue taking antibiotics ITEMS TO FOLLOWUP ON ON OUTPATIENT: Follow-up with psychiatrist and PCP DISCHARGE CONDITION: [Stable]. TIME SPENT ON DISCHARGE: Greater than 40minutes. Vital Signs/I&Os Vital Signs Date Time Temp Pulse Resp B/P (MAP) Pulse Ox O2 Delivery O2 Flow Rate FiO2 04/19/20 14:00 97.6 88 19 140/84 (102) 98 Room Air I&O- Last 24 Hours up to 6 AM 04/19/20 06:00 Intake Total 2240 ml Output Total 700 ml Balance 1540 ml Laboratory Data Labs 24H Laboratory Tests 2 04/19/20 13:33: Immature Granulocyte % (Auto) 0.6, Neutrophils (%) (Auto) 71.4H, Lymphocytes (%) (Auto) 23.2L, Monocytes (%) (Auto) 3.8, Eosinophils (%) (Auto) 0.2, Basophils (%) (Auto) 0.8, Neutrophils # (Auto) 3.6, Lymphocytes # (Auto) 1.2L, Monocytes # (Auto) 0.2, Eosinophils # (Auto) 0.0, Basophils # (Auto) 0.0, Nucleated Red Blood Cells % (auto) 0.0, Anion Gap 6L, Glomerular Filtration Rate > 60.0, Calcium Level 8.7 CBC/BMP Laboratory Tests 04/19/20 13:33 Microbiology Microbiology 04/19/20 Blood Culture, Received Pending 04/19/20 Blood Culture, Received Pending 04/16/20 Blood Culture - Preliminary, Resulted No Growth after 72 hours. All specime... 04/16/20 Blood Culture - Preliminary, Resulted Discharge Medications Scheduled Doxycycline Monohydrate (Doxycycline) 100 Mg Capsule, 1 CAP PO BID Escitalopram Oxalate (Escitalopram Oxalate) 10 Mg Tablet, 10 MG PO DAILY Levonorgestrel (Mirena) 1 Each Iud, 20 MCG IU ASDIRECTED, (Reported) 2015[facility] Olanzapine (Olanzapine) 5 Mg Tablet, 5 MG PO DAILY Zolpidem Tartrate (Zolpidem Tartrate) 5 Mg Tablet, 5 MG PO QHS, (Reported) Allergies Coded Allergies: Penicillins (Verified Allergy, Unknown, 04/12/20) KLEVER BERGERON DO Apr 19, 2020 17:54
== END 2020-04-19 18:42 | disposition home or self-care (01) | DRG 383 ==
LOC: M ED 10:41 → M ED INP 13:39 → M MSPAV 18:19
PROVIDERS: ADMIT Internal Medicine; ATTEND Internal Medicine
DX: L03.114 Cellulitis of left upper limb (principal); R45.851 Suicidal ideations; F32.9 Major depressive disorder, single episode, unspecified; G47.00 Insomnia, unspecified; Z79.899 Other long term (current) drug therapy; Z88.0 Allergy status to penicillin; F17.200 Nicotine dependence, unspecified, uncomplicated; L02.93 Carbuncle, unspecified; F60.3 Borderline personality disorder

== ENCOUNTER → 2020-04-28 | Outpatient (CLI) | payer OTHER ==
[~2020-04-28] MED LIST changes: +DOXY-350 PO; +ESCI10TA2 PO; +MIRE1IUD IU; +OLAN5TAB PO
--- NOTE | 2020-04-28 16:03 | REPPI ---
INDICATION: M25.561 ACUTE PAIN OF RIGHT KNEE COMPARISON: None. TECHNIQUE: There are five views. FINDINGS: There is no fracture or dislocation. Mineralization and joint spaces are normal. There are no calcifications or foreign bodies. However, I suspect there is a suprapatellar effusion. IMPRESSION: Probable suprapatellar effusion. Otherwise, negative right knee. <Electronically signed by Willie Hennessy > 04/28/20 [id number]
== END ==
LOC: M PLAIMG 15:17
PROVIDERS: ATTEND Physician Assistant
DX: M25.561 Pain in right knee (principal)

== ENCOUNTER 2022-08-28 14:04 | Emergency (ER) | payer OTHER ==
[~2022-08-28] VITALS: Ht 160 cm; Wt 105.5 kg
[~2022-08-28 14:04] MED LIST changes: -DOXY-350 PO; +DOXY-444 PO; +ESCI10TA16 PO; -ESCI10TA2 PO; +OLAN1TAB16 PO; -OLAN5TAB PO
[2022-08-28] MEDS ORDERED: KETOROLAC 30 MG/ML 1ML VIAL IV ONE (15:45)
[2022-08-28] MEDS ORDERED: NS 1,000 ML IV ONE (15:45)
[2022-08-28] MEDS ORDERED: AMPICILLIN SOD/SULBACTAM SOD 3 GM in D5W MINI-BAG PLUS 100 ML IV ONE (15:45)
[2022-08-28] MEDS ORDERED: KETOROLAC 60MG 2ML VIAL IM ONE (17:20)
[2022-08-28] MEDS ORDERED: LIDOCAINE 1% SDV 5ML VIAL DILUENT ONE (19:20)
[2022-08-28] MEDS ORDERED: cefTRIAXone SOD 1GM VIAL IM ONE (19:20)
[2022-08-28 20:03] LABS: BLOOD UREA NITROGEN 7 MG/DL (9-23); CALCIUM LEVEL 8.7 MG/DL (8.5-10.1); CARBON DIOXIDE LEVEL 28 MMOL/L (20-31); CHLORIDE LEVEL 106 MMOL/L (98-107); CREATININE FOR GFR 0.47 MG/DL (0.55-1.30); GLOMERULAR FILTRATION RATE > 60.0 (>60); GLUCOSE, FASTING 120 MG/DL (60-100); POTASSIUM SERUM 4.7 MMOL/L (3.5-5.1); SODIUM LEVEL 140 MMOL/L (136-145)
[2022-08-28 20:38] VITALS: BP 167/98
[2022-08-28] MEDS ORDERED: LIDO15SO PO (20:39)
[2022-08-28] MEDS ORDERED: CLEO300C2 PO (20:39)
[2022-08-28] MEDS ORDERED: PRED20TA PO (20:39)
== END 2022-08-28 20:47 | disposition home or self-care (01) ==
LOC: M ED 14:04
DX: K04.7 Periapical abscess without sinus (principal); K02.9 Dental caries, unspecified; R22.0 Localized swelling, mass and lump, head; F41.9 Anxiety disorder, unspecified; F32.9 Major depressive disorder, single episode, unspecified; F17.200 Nicotine dependence, unspecified, uncomplicated; Z97.5 Presence of (intrauterine) contraceptive device; Z79.899 Other long term (current) drug therapy; Z88.0 Allergy status to penicillin
CPT/HCPCS: 36415; 70486; 80048; 86140; 96372; 99283; J0696; J1100; J1885

== ENCOUNTER → 2023-12-06 | Outpatient (REF) ==
[~2023-12-06] MED LIST changes: +DOXY-440 PO; -DOXY-444 PO; +LIDO15SO8 PO; +PRED20TA PO
== END ==
LOC: M PLAIMG 12:13
PROVIDERS: ATTEND Internal Medicine
DX: R52 Pain, unspecified (principal)